=== PATIENT | male | born 1990 | race Caucasian/White ===

== ENCOUNTER → 2018-02-03 | Outpatient (CLI) | payer OTHER ==
--- NOTE | 2018-02-03 13:24 | FL ---
EXAMINATION TYPE: FL barium swallow DATE OF EXAM: 02/03/2018 COMPARISON: NONE HISTORY: Dysphagia, globus sensation TECHNIQUE: A single contrast UGI study is performed. 49 seconds fluoroscopy time. 16 images FINDINGS: Esophagus dilates to normal caliber has normal contour to the gastroesophageal junction. Ga stroesophageal junction opens to normal caliber. No intraluminal or extramural defects are evident. N o hesitancy passing through the gastroesophageal junction is evident. There is complete stripping of the esophageal bolus in the horizontal drinking position. IMPRESSIONS: 1. Normal esophagram
== END | disposition home or self-care (01) ==
LOC: RADFLMAIN 07:49
PROVIDERS: ATTEND Otolaryngology
DX: R13.10 Dysphagia, unspecified (principal)
CPT/HCPCS: 74220

== ENCOUNTER 2019-09-08 15:22 | Observation (INO) | payer OTHER ==
[2019-09-08] MEDS ORDERED: NITROGLYCERIN OINT 1 INCH/GM PACKET TOPICAL STA (15:27)
[2019-09-08] MEDS ORDERED: ASPIRIN 81 MG PO STA (15:27)
--- NOTE | 2019-09-08 15:38 | ED ---
Chest Pain HPI - General Chief Complaint: Chest Pain Stated Complaint: Chest pain Time Seen by Provider: 09/08/19 15:27 Source: patient Mode of arrival: ambulatory Limitations: no limitations - History of Present Illness Initial Comments: 29-year-old male with history of hypertension, previous smoker currently taking Chantix for cessation 4 days presents emergency department for chief complaint of chest pain times x 3 days.patient states that he began having chest pressure throughout the day he started taking them when he described no particular pat tern he states he noticed it while sitting at work. He states today a few hours ago the pressure increased he states he began to feel as though his heart was "beating hard" and at an accelerated rate.patient states he feels mildly short of breath. He states he began to develop a tingling and numbness down the left arm and hand. He states he has never experienced this before and denies any previous neck disease. Patient denies any ripping, tearing chest or back pain, history of premature CAD. Patient sates he is currently off all BP medications but previously used them for control. Patient denies diabetic history of history of sudden in adolescence childhood or young adults of his family. patient denies surgical history. Denies use of erectile dysfunction medications. Remaining ROS (-). Upon arrival patient states symptoms are resolving, BP noted to be elevated. - Related Data Allergies Allergy/AdvReac Type Severity Reaction Status Date / Time No Known Allergies Allergy Verified 09/08/19 15:25 Review of Systems ROS Statement: Those systems with pertinent positive or pertinent negative responses have been documented in the HPI. ROS Other: All systems not noted in ROS Statement are negative. EKG Findings - EKG Comments: EKG Findings:: ventricular rate 104 bpm, SD interval 142 ms, QRS duration 94 ms, QT/QTC 338/444 ms and sinus tachycardia. Early repolarization appreciated otherwise no specific ST elevation or depression. Minimal voltage criteria for left ventricular hypertrophy otherwise no obvious acute abnormalities Past Medical History Past Medical History: No Reported History History of Any Multi-Drug Resistant Organisms: None Reported Past Surgical History: No Surgical Hx Reported Past Psychological History: No Psychological Hx Reported Smoking Status: Current some day smoker Past Alcohol Use History: Occasional Past Drug Use History: None Reported General Exam - General Exam Comments Initial Comments: General: The patient is awake and alert, in no distress Eye: +3 mm pupils are equal, round and reactive to light, extra-ocular movements are intact. No nystagmus. There is normal conjunctiva bilaterally. No signs of icterus. Ears, nose, mouth and throat: There are moist mucous membranes and no oral lesions. Neck: The neck is supple, there is no tenderness or JVD. Cardiovascular: There is a regular rate and rhythm. No murmur, rub or gallop is appreciated. Respiratory: Lungs are clear to auscultation, respirations are non-labored, breath sounds are equal. No wheezes, stridor, rales, or rhonchi. Gastrointestinal: Soft, non-distended, non-tender abdomen without masses or organomegaly noted. There is no rebound or guarding present. Musculoskeletal: Normal ROM, no tenderness. Strength 5/5. Sensation intact. Pu lses equal bilaterally 2+. Neurological: A&O x 3. CN II-XII intact grossly, There are no obvious motor or sensory deficits. Coordination appears grossly intact. Speech is normal. Skin: Skin is warm and dry and no rashes or lesions are noted. No LE edema. Psychiatric: Cooperative, appropriate mood & affect, normal judgment. Limitations: no limitations Course Vital Signs 09/08/19 15:23 Temperature 98.2 F Pulse Rate 103 H Respiratory 20 Rate Blood Pressure 161/94 O2 Sat by Pulse 99 Oximetry Chest Pain MDM - MDM 29yo male with hx of HTN and smoker. Recently started on chantix. Arriving in ER for CP. Appears typical. Left arm parathesias, pressure like pain. Given patient risk factos with increase in pain within last 2 hours. Patient will be admitted for serial troponins, initial troponin (-). CXR clear. Heart sounds WNL. No peripheral vascular abnormalities. Patient case discussed with Dr. Harry who is agreeable with admission. Spoke with PROJECT FACILITATOR Glendy, covering for [facility]. Who accepted admission with no further orders. Cardiology on consult. Disposition Clinical Impression: Chest pressure, Tachycardia, Arm paresthesia, left Disposition: ADMITTED IP TO THIS HOSP Condition: Stable Is patient prescribed a controlled substance at d/c from ED?: No Referrals: Shane Ríos [Primary Care Provider] - 1-2 days Time of Disposition: 17:11 Decision to Admit Reason: Admit from EC Decision Date: 09/08/19 Decision Time: 17:12
[2019-09-08 16:14] LABS: Basophils % (A) 1 %; Eosinophils # (A) 0.1 k/uL (0-0.7); Eosinophils % (A) 1 %; HCT 46.8 % (39.0-53.0); HGB 15.7 gm/dL (13.0-17.5); Lymphocytes # (A) 2.2 k/uL (1.0-4.8); Lymphocytes % (A) 35 %; MCH 29.5 pg (25.0-35.0); MCHC 33.6 g/dL (31.0-37.0); MCV 87.6 fL (80.0-100.0); Mean Platelet Volume 6.9; Monocytes # (A) 0.3 k/uL (0-1.0); Monocytes % (A) 5 %; Neutrophils # (A) 3.6 k/uL (1.3-7.7); Neutrophils % (A) 57 %; Platelet Count 265 k/uL (150-450); RBC 5.34 m/uL (4.30-5.90); WBC 6.4 k/uL (3.8-10.6)
[2019-09-08 16:28] LABS: Prothrombin Time 10.4 sec (9.0-12.0)
[2019-09-08 16:30] LABS: ALT 42 U/L (4-49); AST 31 U/L (17-59); African American GFR (CKD) >90 (>60 ml/min/1.73 sqM); Albumin 5.5 g/dL (3.5-5.0); Alkaline Phosphatase 43 U/L (38-126); Anion Gap 12 mmol/L; Blood Urea Nitrogen 17 mg/dL (9-20); Carbon Dioxide 27 mmol/L (22-30); Chloride 103 mmol/L (98-107); Glucose 104 mg/dL (74-99); Magnesium 2.1 mg/dL (1.6-2.3); Non-African American GFR(CKD) >90 (>60 ml/min/1.73 sqM); Potassium 3.8 mmol/L (3.5-5.1); Sodium 142 mmol/L (137-145); Total Bilirubin 0.6 mg/dL (0.2-1.3); Total Protein 8.8 g/dL (6.3-8.2)
--- NOTE | 2019-09-08 16:32 | XR ---
EXAMINATION TYPE: XR chest 2V DATE OF EXAM: 09/08/2019 COMPARISON: None INDICATION: Chest pain and heaviness TECHNIQUE: Frontal and lateral views of the chest are obtained. FINDINGS: The heart size is normal. The pulmonary vasculature is normal. The lungs are clear. IMPRESSION: 1. No acute pulmonary process.
[2019-09-08] MEDS ORDERED: NITROGLYCERIN SL TABS 0.4 MG TAB SUBLINGUAL PRN (17:10)
[2019-09-09 04:00] LABS: Cholesterol 191 mg/dL (<200); HDL Cholesterol 34 mg/dL (40-60); LDL Cholesterol,Calculated 133 mg/dL (0-99); Triglycerides 122 mg/dL (<150)
[2019-09-09 07:25] VITALS: RESP 18
[2019-09-09] MEDS ORDERED: ASPIRIN 325 MG TAB PO SCH (09:00)
[2019-09-09 11:26] VITALS: BP 129/77; PULSE 86; TEMP 98.3
--- NOTE | 2019-09-09 12:03 | P.CRDCN ---
History of Present Illness Consult date: 09/09/19 Chief complaint: Chest pain History of present illness: This is a very pleasant 29-year-old gentleman with no significant past medical history besides history of smoking presented to the emergency room complaining of chest discomfort. The patient recently has been working to stop smoking and he was started on Chantix. He stated that he has been experiencing intermittent episodes of chest discomfort for the last few days. The discomfort is sharp, in the mid of the chest, without any radiation to the arm or neck or shoulders and without any associated symptoms beside heart racing and fluttering. No dizziness or lightheadedness or syncope. The discomfort is clearly not exertional related. The EKG when he presented to the hospital showed sinus rhythm with sinus tachycardia. The cardiac enzymes were checked and came in to be unremarkable. The chest x-ray did not show any acute abnormalities. The patient has been chest pain-free since he was admitted to the hospital. He denies any prior medical history. No prior surgery. He doesn't smoke and he is working on smoking cessation currently. No family history of coronary artery disease. I am going to obtain an echocardiogram was Doppler. The patient does need to have a stress test. He would like to go home and have it done as an outpatient, considering today is Wednesday and we don't to stresses on the weekend. Having said that I am going to get the patient up and around walking in the hallway, if he is asymptomatic he possibly can go home and have a stress test as an outpatient. Also will get an echocardiogram Y the patient is here in the hospital. Past Medical History Past Medical History: No Reported History History of Any Multi-Drug Resistant Organisms: None Reported Past Surgical History: No Surgical Hx Reported Past Psychological History: No Psychological Hx Reported Smoking Status: Current some day smoker Past Alcohol Use History: Occasional Past Drug Use History: None Reported Medications and Allergies Home Medications Medication Instructions Recorded Confirmed Type Varenicline [Chantix Starter Pack] See Taper PO DIRECTED 09/08/19 09/08/19 History Allergies Allergy/AdvReac Type Severity Reaction Status Date / Time No Known Allergies Allergy Verified 09/08/19 17:32 Physical Exam Vitals: Vital Signs Temp Pulse Pulse Resp BP BP Pulse Ox 09/09/19 11:25 98.3 F 86 18 129/77 99 09/09/19 07:10 97.5 F L 84 18 117/75 96 09/09/19 04:00 97.8 F 64 16 115/70 97 09/08/19 23:42 97.8 F 81 17 120/59 98 09/08/19 19:00 98.6 F 79 16 129/77 98 09/08/19 18:19 88 18 09/08/19 18:15 98.4 F 88 18 125/79 98 09/08/19 17:49 98.5 F 86 18 122/87 98 09/08/19 15:23 98.2 F 103 H 20 161/94 99 Intake and Output 09/08/19 09/09/19 09/09/19 22:59 06:59 14:59 Intake Total 0 Balance 0 Intake: Oral 0 Other: Voiding Method Toilet Toilet Toilet # Voids 1 Weight 70.307 kg - Constitutional General appearance: no acute distress - Respiratory Respiratory: bilateral: CTA - Cardiovascular Rhythm: regular Heart sounds: normal: S1, S2 Results 09/08/19 15:49 09/08/19 15:49 Cardiac Enzymes 09/08/19 09/08/19 09/08/19 Range/Units 15:49 15:49 22:17 AST 31 (17-59) U/L Troponin I <0.012 <0.012 (0.000-0.034) ng/mL 09/09/19 Range/Units 03:30 AST (17-59) U/L Troponin I <0.012 (0.000-0.034) ng/mL Coagulation 09/08/19 Range/Units 15:49 PT 10.4 (9.0-12.0) sec APTT 25.0 (22.0-30.0) sec Lipids 09/09/19 Range/Units 03:30 Triglycerides 122 (<150) mg/dL Cholesterol 191 (<200) mg/dL HDL Cholesterol 34 L (40-60) mg/dL CBC 09/08/19 Range/Units 15:49 WBC 6.4 (3.8-10.6) k/uL RBC 5.34 (4.30-5.90) m/uL Hgb 15.7 (13.0-17.5) gm/dL Hct 46.8 (39.0-53.0) % Plt Count 265 (150-450) k/uL Comprehensive Metabolic Panel 09/08/19 Range/Units 15:49 Sodium 142 (137-145) mmol/L Potassium 3.8 (3.5-5.1) mmol/L Chloride 103 (98-107) mmol/L Carbon Dioxide 27 (22-30) mmol/L BUN 17 (9-20) mg/dL Creatinine 0.98 (0.66-1.25) mg/dL Glucose 104 H (74-99) mg/dL Calcium 10.0 (8.4-10.2) mg/dL AST 31 (17-59) U/L ALT 42 (4-49) U/L Alkaline Phosphatase 43 (38-126) U/L Total Protein 8.8 H (6.3-8.2) g/dL Albumin 5.5 H (3.5-5.0) g/dL Current Medications Generic Name Dose Route Start Last Admin Trade Name Freq PRN Reason Stop Dose Admin Aspirin 325 mg 09/09/19 09:00 09/09/19 10:51 Aspirin PO 325 mg DAILY BI Administration Nitroglycerin 0.4 mg 09/08/19 17:10 Nitrostat SUBLINGUAL Q5M PRN Chest Pain Intake and Output 09/08/19 09/09/19 09/09/19 22:59 06:59 14:59 Intake Total 0 Balance 0 Intake: Oral 0 Other: Voiding Method Toilet Toilet Toilet # Voids 1 Weight 70.307 kg 09/08/19 15:49 09/08/19 15:49 Assessment and Plan Assessment: Assessment #1 atypical chest discomfort #2 sinus tachycardia Plan #1 acute coronary event was ruled out #2 PE was ruled out #3 an echocardiogram #4 stress test probably as an outpatient #5 probably event monitor as an outpatient as well Thank you for allowing us participate in his care
--- NOTE | 2019-09-09 14:41 | P.HPIM ---
History of Present Illness H&P Date: 09/09/19 Chief Complaint: chest pain 29-year-old male with history of hypertension, previous smoker currently taking Chantix for cessation 4 days presents emergency department for chief complaint of chest pain times x 3 days.patient states that he began having chest pressure throughout the day he started taking them when he described no particular pattern he states he noticed it while sitting at work. He states today a few hours ago the pressure increased he states he began to feel as though his heart was "beating hard" and at an accelerated rate.patient states he feels mildly short of breath. He states he began to develop a tingling and numbness down the left arm and hand. He states he has never experienced this before and denies any previous neck disease. Patient denies any ripping, tearing chest or back pain, history of premature CAD. Patient sates he is currently off all BP medications but previously used them for control. Patient denies diabetic history of history of sudden in adolescence childhood or young adults of his family. patient denies surgical history. Denies use of erectile dysfunction medications. Remaining ROS (-). Upon arrival patient states symptoms are resolving, BP noted to be elevated. workup in ED with an EKG showing a ventricular rate of 104, CO interval 142 and QRS duration of 94; no specific ST or T wave changes Patient has been evaluated by cardiology and is recommended echocardiogram prior to discharge Review of Systems REVIEW OF SYSTEMS: CONSTITUTIONAL: No fever, no malaise, no fatigue. HEENT: No recent visual problems or hearing problems. Denied any sore throat. CARDIOVASCULAR: No chest pain, orthopnea, PND, no palpitations, no syncope. PULMONARY: No shortness of breath, no cough, no hemoptysis. GASTROINTESTINAL: No diarrhea, no nausea, no vomiting, no abdominal pain. NEUROLOGICAL: No headaches, no weakness, no numbness. HEMATOLOGICAL: Denies any bleeding or petechiae. GENITOURINARY: Denies any burning micturition, frequency, or urgency. MUSCULOSKELETAL/RHEUMATOLOGICAL: Denies any joint pain, swelling, or any muscle pain. ENDOCRINE: Denies any polyuria or polydipsia. The rest of the 14-point review of systems is negative. Past Medical History Past Medical History: No Reported History History of Any Multi-Drug Resistant Organisms: None Reported Past Surgical History: No Surgical Hx Reported Past Psychological History: No Psychological Hx Reported Smoking Status: Current some day smoker Past Alcohol Use History: Occasional Past Drug Use History: None Reported Medications and Allergies Home Medications Medication Instructions Recorded Confirmed Type Varenicline [Chantix Starter Pack] See Taper PO DIRECTED 09/08/19 09/08/19 History Allergies Allergy/AdvReac Type Severity Reaction Status Date / Time No Known Allergies Allergy Verified 09/08/19 17:32 Physical Exam Vitals: Vital Signs Temp Pulse Pulse Resp BP BP Pulse Ox 09/09/19 11:25 98.3 F 86 18 129/77 99 09/09/19 07:10 97.5 F L 84 18 117/75 96 09/09/19 04:00 97.8 F 64 16 115/70 97 09/08/19 23:42 97.8 F 81 17 120/59 98 09/08/19 19:00 98.6 F 79 16 129/77 98 09/08/19 18:19 88 18 09/08/19 18:15 98.4 F 88 18 125/79 98 09/08/19 17:49 98.5 F 86 18 122/87 98 09/08/19 15:23 98.2 F 103 H 20 161/94 99 Intake and Output 09/08/19 09/09/19 09/09/19 22:59 06:59 14:59 Intake Total 0 325 Balance 0 325 Intake: Oral 0 125 Other 200 Other: Voiding Method Toilet Toilet Toilet # Voids 1 Weight 70.307 kg PHYSICAL EXAMINATION: VITAL SIGNS: Temperature [], pulse of [], respiratory rate of [], blood pressure is []. Saturating at []% on []. GENERAL: The patient is alert and oriented x3, not in any acute distress. Well developed, well nourished. HEENT: Pupils are round and equally reacting to light. EOMI. No scleral icterus. No conjunctival pallor. Normocephalic, atraumatic. No pharyngeal erythema. No thyromegaly. CARDIOVASCULAR: S1 and S2 present. No murmurs, rubs, or gallops. PULMONARY: Chest is clear to auscultation, no wheezing or crackles. ABDOMEN: Soft, nontender, nondistended, normoactive bowel sounds. No palpable organomegaly. MUSCULOSKELETAL: No joint swelling or deformity. EXTREMITIES: No cyanosis, clubbing, or pedal edema. NEUROLOGICAL: Gross neurological examination did not reveal any focal deficits. SKIN: No rashes. Results CBC & Chem 7: 09/08/19 15:49 09/08/19 15:49 Labs: Abnormal Lab Results - Last 24 Hours (Table) 09/08/19 09/09/19 Range/Units 15:49 03:30 Glucose 104 H (74-99) mg/dL Total Protein 8.8 H (6.3-8.2) g/dL Albumin 5.5 H (3.5-5.0) g/dL LDL Cholesterol, Calc 133 H (0-99) mg/dL HDL Cholesterol 34 L (40-60) mg/dL Thrombosis Risk Factor Assmnt - Choose All That Apply Any of the Below Risk Factors Present?: No Other Risk Factors: No Other congenital or acquired thrombophilia - If yes, enter type in comment: No Thrombosis Risk Factor Assessment Level: Very Low Risk Assessment and Plan Assessment: chest pain rule out acute coronary syndrome; monitor EKG and trend troponins; 2- D echo; consult cardiology Sinus tachycardia; cardiology to see and make further recommendations Uncontrolled hypertension; possibly situational; monitor for now DVT prophylaxis; SCDs CODE STATUS; full code
--- NOTE | 2019-09-09 15:23 | P.DS ---
Providers Date of admission: 09/08/19 16:59 Expected date of discharge: 09/09/19 Attending physician: Jakub Spence MD Consults: 09/08/19 17:10 Consult Physician Urgent Consulting Provider: Nas Reyes Consult Reason/Comments: on chantix, chest pressure/pain Do you want consulting provider notified?: Yes Primary care physician: [facility] Course: 29-year-old gentleman with no significant past medical history besides history of smoking presented to the emergency room complaining of chest discomfort. The patient recently has been working to stop smoking and he was started on Chantix. He stated that he has been experiencing intermittent episodes of chest discomfort for the last few days. The discomfort is sharp, in the mid of the chest, without any radiation to the arm or neck or shoulders and without any associated symptoms beside heart racing and fluttering. No dizziness or lightheadedness or syncope. The discomfort is clearly not exertional related. The EKG when he presented to the hospital showed sinus rhythm with sinus tachycardia. The cardiac enzymes were checked and came in to be unremarkable. The chest x-ray did not show any acute abnormalities. The patient has been chest pain-free since he was admitted to the hospital. He denies any prior medical history. No prior surgery. He doesn't smoke and he is working on smoking cessation currently. No family history of coronary artery disease. I am going to obtain an echocardiogram was Doppler. The patient does need to have a stress test. He would like to go home and have it done as an outpatient, considering today is Wednesday and we don't to stresses on the weekend. Having said that I am going to get the patient up and around walking in the hallway, if he is asymptomatic he possibly can go home and have a stress test as an outpatient. Also will get an echocardiogram Y the patient is here in the hospital. patient refused to stay for an echocardiogram and left AMA Patient Condition at Discharge: Stable Plan - Discharge Summary Discharge Rx Participant: No New Discharge Prescriptions: Continue Varenicline [Chantix Starter Pack] See Taper PO DIRECTED Discharge Medication List Varenicline [Chantix Starter Pack] See Taper PO DIRECTED 09/08/19 [History] Follow up Appointment(s)/Referral(s): Nas Reyes MD [STAFF PHYSICIAN] - 09/12/19 3:30 pm Shane Ríos [Primary Care Provider] - 1-2 days Discharge Disposition: Left Against Medical Advice
== END 2019-09-09 14:50 | disposition left against medical advice (07) ==
LOC: EC 15:22 → 1SOBS 16:59
PROVIDERS: ADMIT Internal Medicine; ATTEND Internal Medicine
DX: R07.89 Other chest pain (principal); R00.0 Tachycardia, unspecified; R20.2 Paresthesia of skin; R20.0 Anesthesia of skin; R06.02 Shortness of breath; Z53.29 Procedure and treatment not carried out because of patient's decision for other reasons; I25.10 Atherosclerotic heart disease of native coronary artery without angina pectoris; I10 Essential (primary) hypertension; F17.200 Nicotine dependence, unspecified, uncomplicated; Z79.899 Other long term (current) drug therapy
CPT/HCPCS: 93005 ×2; 99285; 36415; 85379; 80061; 80053; 83735; 84484 ×2; 85025; 85610; 85730; 71046; G0378 ×2